=== PATIENT | male | born 1940 | race Caucasian/White ===

== ENCOUNTER 2024-12-26 18:00 | Inpatient (IN) | payer OTHER, SELFPAY ==
[2024-12-26] VITALS (21 sets, daily range): BP systolic 81–121; BP diastolic 53–85; PULSE 2–129; BMI 25.6; BMI 25.1
[2024-12-26] MEDS: OFIRMEV 100 IV (15:08)
--- NOTE | 2024-12-26 15:09 | ED.GENMED ---
History of Present Illness
General
Chief Complaint: Heart Rate Problem
Source: patient and ambulance crew
Exam Limitations: clinical condition
Time Seen by Provider: 12/26/24 14:56
Nursing documentation reviewed up to this point in time: agreed with
History of Present Illness
History of Present Illness:
The patient is an 84-year-old man who arrives extremely short of breath with paramedics. According to paramedics, the patient was tachycardic in the 160s and was extremely short of breath. Therefore, patient was given Versed in the field and
cardioverted twice, with both 100 J and then 200 J. Patient post cardioversion is still tachycardic. Patient arrives and found to be febrile, short of breath and tachycardic. Patient is a vague historian, as he has dementia and is very short of
breath.
Past History
Past History
ED Past Medical History: CAD
ED Past Surgical History: Other
Social History
Tobacco: Former smoker
Alcohol: Other
Drug: Other
Personal: Other
Living: other
Employment: Other
Family History
Family History: Other
Review of Systems
Review of Systems
Allergies reviewed?: Yes
All Other Systems: Not applicable (Limited due to clinical condition)
Constitutional: Reports fatigue
EENT: Reports no symptoms
Respiratory: Reports trouble breathing
Cardiac: Reports no symptoms
ABD/GI: Reports no symptoms
Phy Exam
Physical Exam
Physical Exam:
Physical Exam
General: Patient appears flushed, tachypneic, coughing, nasal congestion, on a nonrebreather of oxygen
Heart: Tachycardic
Lungs: Tachypneic, audible wheezing and rales
Abdomen: Soft
Neuro: Alert, nonfocal
Skin: no rash
Psychiatric: well kept. interactive and cooperative
Extremities: no edema.
Sepsis
Sepsis Screening
Sepsis Assessment: Sepsis
Sepsis Screen
Sepsis Screen: Sepsis
Date: 12/26/24
Time: 16:17
Course
Orders/Labs/Results
Orders:
Orders
12/26/24 14:57
EKG [Electrocardiogram (*1)] Urgent
Reason for Study: Chest Pain
12/26/24 14:58
Portable Chest Xray [CR Chest Portable - 1 View] Urgent
Comment:
Reason For Exam: sepsis
Reason Study Needs to be Portable: Unable to Transport
12/26/24 14:59
EKG- Treatment ONCE
Acetaminophen 1000MG/100Ml [Ofirmev] 1,000 mg in 100 ml .ROUTE .STK-MED
12/26/24 15:03
Acetaminophen 1000MG/100Ml [Ofirmev] 1,000 mg in 100 ml IV ONCE
Acetaminophen IV Indication:: No AR & No Enteral Access
Dexamethasone Sod Phosphate [Decadron] 10 mg IV NOW STA
Bipap [RESP] Urgent
Patient to use own unit?: No
Inspiratory Pressure (cm H2O): 10
Expiratory Pressure (cm H2O): 5
12/26/24 15:04
COVID-19 Antigen Urgent
Source: Nasal Swab
Complete Blood Count/With Diff Urgent
Comprehensive Metabolic Panel Urgent
Lactate Level [Lactic Acid] Urgent
NT-proBNP Urgent
Troponin I Urgent
Blood Culture Q10M
DONAL Source: Blood/Venous
Specimen Description:
Influenza A+B Rapid Molecular Urgent
DONAL Source: Nasal Swab
Specimen Description:
0.9% Sodium Chloride 500 ml [Nss] 500 ml IV BOLUS
Albuterol Sulfate [Ventolin Nebules] 10 mg INH R NOW STA
12/26/24 15:05
Venous Blood Gas Urgent
%Oxygen/Room Air: 5
12/26/24 15:32
Urinalysis Reflex To Culture Urgent
12/27/24 14:58
Blood Culture Q10M
DONAL Source: Blood/Venous
Specimen Description:
Abnormal Lab Results
12/26/24 12/26/24
15:04 15:05
WBC 12.2 H 10^3/uL
(4.8-10.8)
RBC 4.28 L 10^6/uL
(4.70-6.10)
Hgb 12.2 L g/dL
(13.0-18.0)
Hct 36.8 L %
(39.0-52.0)
Abs Immat Gran (auto) 0.1 H 10^3/uL
(0-0.05)
Absolute Neuts (auto) 9.5 H 10^3/uL
(1.4-6.5)
Absolute Monos (auto) 1.4 H 10^3/uL
(0.1-0.6)
Neutrophils % 77.8 H %
(42.2-75.2)
Lymphocytes % 9.4 L %
(20.5-51.1)
Monocytes % 11.3 H %
(1.7-9.3)
VBG pO2 105 H mmHg
(30-50)
BUN 26 H mg/dl
(9-20)
Creatinine 1.5 H mg/dL
(0.7-1.3)
Glucose 198 H mg/dl
(70-99)
Troponin I 0.066 H* ng/ml
SARS-CoV-2 Antigen Positive A
(Negative)
12/26/24 15:04
12/26/24 15:04
Vital Signs
Initial and Last Documented VS:
Initial Vital Signs
Pulse Resp
133 32
12/26/24 14:58 12/26/24 14:58
Last Documented Vital Signs
Temp Pulse Resp BP
1041 F H 114 15 107/62
12/26/24 15:14 12/26/24 16:00 12/26/24 16:00 12/26/24 16:00
MDM/Problems Addressed
Differential Diagnosis Includes:
Pneumonia, CHF, rapid A-fib, acute coronary syndrome, COPD exacerbation
MDM/Problems Addressed:
Patient presents with acute shortness of breath and fever
Chronic conditions affecting care: CAD
Acute Exacerbation and/or Progression of Chronic Illness:
Patient may have acute exacerbation of acute coronary syndrome causing CHF
*Radiology
Radiology exam reviewed: preliminary read by ED provider (Chest x-ray read by me. Possible left sided infiltrate) and radiology read reviewed
*Pulse Oximetry
Oxygen Mode of Delivery: Room air
Patient hypoxic: yes
Comment: Reportedly was 84% on room air by paramedics. Arrives on a nonrebreather of oxygen.
*EKG
Interpreted by ED Provider?: Yes
Interpretation: abnormal
Comparison EKG: no comparison EKG present
Rate: tachycardiac
Rhythm: a-fib (Possible A-fib versus sinus tachycardia)
[place]: normal axis
Interval: normal interval
QRS Pattern: left vent hypertrophy
Ischemia: non-specific ST changes
*Spent Grain Dryer Interpretation
Rate: tachycardiac
Interpretation: abnormal
Rhythm: sinus (Sinus tach versus A-fib)
*Critical Care Note
Total Time (30-74mins, 75-104mins- exclusive of procedures): 54 min
comment:
54 minutes critical care given to patient including frequent reassessments of his heart rate, blood pressure, mental status and respiratory rate. Patient is greatly improved with BiPAP and is breathing more comfortably. Additionally, time spent
checking patient's chest x-ray, reviewing his blood work and speaking to admitting team
Data Reviewed
Source: patient and ambulance crew
Update Note
Update Note:
Given patient's fever is likely due to viral illness, antibiotics will be held for now. If needed, the admitting service can initiate antibiotics.
ED Attending Note
-
Portions of this chart may have been created with voice recognition software.� Occasional wrong word or��sound alike� substitutions may have occurred due to the inherent limitations of voice recognition software.
Discharge Plan
Departure
Patient Disposition: Admit
Date of Disposition: 12/26/24
Time of Disposition: 16:11
Admit to: IMU
Presentation/result/management discussed w/ accepting MD/DO: Hospitalist
Patient with high blood pressure during this ER visit?: No
Condition: Critical
Covid-19: Confirmed COVID-19
Discharge Problem:
A-fib with rapid ventricular rate, CHF (congestive heart failure), Acute hypoxic respiratory failure, COVID
Discharge Date and Time
Print Language: BOTSWANAN
[2024-12-26] MEDS: VENTOLIN NEBULES 10 MG INH (15:12)
[2024-12-26 15:15] LABS: Hematocrit 36.8 % (39.0-52.0); Hemoglobin 12.2 g/dL (13.0-18.0); Mean Corp Hgb Conc. 33.2 g/dL (33.0-37.0); Mean Corpuscular Volume 86.0 fL (80.0-94.0); Nucleated Red Blood Cells % 0 % (-); Platelet Count 191 10^3/uL (130-400); Red Cell Dist. Width 13.7 % (11.5-14.5)
[2024-12-26 15:16] LABS: Venous Blood Gas B.E. 1.0 mmol/L (-4 to +4); Venous Blood Gas O2 Sat % 98.7 %
[2024-12-26 15:29] LABS: ALT (SGPT) 14 U/L (0-50); AST (SGOT) 24 U/L (17-59); Albumin 4.0 g/dl (3.5-5.0); Alkaline Phosphatase 97 U/L (38-126); Blood Urea Nitrogen 26 mg/dl (9-20); Calcium 9.0 mg/dl (8.4-10.2); Carbon Dioxide 26 mmol/L (22-30); Chloride 102 mmol/L (98-107); Glucose 198 mg/dl (70-99); Potassium 4.1 mmol/L (3.5-5.1); Sodium 137 mmol/L (135-145); Total Protein 7.6 g/dl (6.3-8.2); eGFR 45.62
[2024-12-26 15:32] LABS: COVID-19 Antigen Positive (Negative)
[2024-12-26] MEDS: NSS 500 IV (15:38)
[2024-12-26 15:46] LABS: Troponin I 0.066 ng/ml
[2024-12-26] MEDS: DECADRON 10 MG IV (15:50)
--- NOTE | 2024-12-26 16:40 | W.PN.UPDATE ---
Update Note
Progress Note Update
84-year-old male with dementia, HFrEF with LVEF 25%, CAD presented to the hospital via EMS with tachycardia and dyspnea. Noted to have heart rate 160s per minute in the field with significant shortness of breath, was given Versed and cardioverted x
2 with 100 J and then 200 J subsequently. Following cardioversion remained tachycardic. Found to be febrile, history limited by dementia. Upon arrival was hypoxemic requiring BiPAP, febrile, hypotensive but responsive to fluid. Labs with WBC
12.2, neutrophilic predominance, creatinine 1.5, BUN 26, troponin 0.066, BNP 11,700. VBG with pH 7.38, [id number], bicarb 26.6. Viral panel positive for COVID. ECG with sinus tachycardia and PVCs, no obvious acute ischemic change, QTc 500 ms. CXR
with mild interstitial opacification consistent with edema and mild opacification at the left lung base. In the ED was given albuterol nebulizer, 10 mg Decadron, 1 g Tylenol and 500 mL IV fluids. Blood cultures taken in the ED.
Alert and oriented, appears unwell. Bibasilar crackles, L >R, nonlabored on BiPAP. Tachycardic with regular appearing rhythm, no murmurs, normal S1-2, no JVD. Benign abdomen. Trace edema, palpable pulses. Skin warm and dry. No focal deficits
Acute hypoxemic respiratory failure. Likely associated with COVID, decompensated HFrEF. COVID-positive, BNP near 12,000, CXR with edema. Started on steroid in the ED, will continue with IV Decadron 6 mg daily, remdesivir for 5 days. Continue
with as needed bronchodilators Start IV Lasix 20 mg, monitor BMP + I's and O's + weights. Ordered TTE. Wean oxygen for SpO2 goal >90%
Sepsis secondary to pneumonia. Suspect this is predominantly viral though did have high fever via rectal route on arrival, possible opacity of left lung base. Will add on procalcitonin, if elevated will consider course of empiric IV ceftriaxone
and doxycycline. Follow-up blood cultures as above, check sputum culture. Trend CBC and temperature curve
Elevated troponin. Suspect nonischemic injury from hypoxemia and tachycardia though cannot rule out ACS completely. No reported chest pain, ECG without ischemic change. Will hold off on IV heparin drip for now, trend troponin with serial ECG.
Start baby aspirin, consider statin when tolerating p.o. diet. Beta-jose as above. Consider IV heparin if troponin up trends or he develops dynamic ECG changes. Check echo for WMA. Telemetry
Atrial fibrillation with RVR. [id number] 3 or higher, limited history. S/p cardioversion x 2 en route to hospital. Remains tachycardic with heart rate 115 on arrival. Start metoprolol tartrate 25 mg twice daily, as needed Lopressor for HR
sustained >130. Consult cardiology for decision on anticoagulation in the context of advanced dementia. Follow-up echo as above. Monitor telemetry
QTc prolongation. 500 ms on initial ECG. Avoid QTc prolonging agents for now. Start beta-jose as above. Monitor telemetry. Check Mag, replete electrolytes for K >4 and mag >2.
SQ heparin
NPO for now, JAVA DEVELOPMENT MANAGER eval
DNR
[facility]
I will be admitting Selwyn Gilmore to IMU. He is at high risk for worsening morbidity due to acute hypoxemic respiratory failure due to COVID and CHF. He will require intensive monitoring of his respiratory status and readjustment of his diuretic
regimen. I have discussed this case with the ED attending and box stapler. I have reviewed the case with the resident and agree with all documentation unless otherwise specified.
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
--- NOTE | 2024-12-26 17:28 | CM ---
CM reviewed chart, met with pt bedside in ED. He confirms he currently lives at [facility] for 'past 90 days'. Pt states he hates it there and wants to go back to [place]. Currently on Bipap, COVID +
I spoke to pt's Stephanie, cell [phone], she confirms he was transferred to [facility] from [facility] in late October.
Pt told me he ambulates with cane and confirms this.
Limited information sent by [facility]. Pt's told me he has had 'breathing episodes' in the past.
Tentative discharge plan to return to [facility] once medically stable.
[2024-12-26 17:41] LABS: Magnesium 1.7 mg/dl (1.6-2.3)
[2024-12-26 17:49] LABS: Procalcitonin 0.26 ng/ml (0.0-0.25)
--- NOTE | 2024-12-26 18:31 | PHANOTE ---
med rec tech: pt came with paper work from 10/28/24, I called and asked the nurse on duty for a current MAR. the faxed document is almost impossible to read. I called the facility to ask for a verbal list and was told by the hotel houseman that the
nurse had left and there were no other nurses in the facility. leaving everything unconfirmed. [facility] [phone]
--- NOTE | 2024-12-26 18:41 | PTCARENOTE ---
Patient arrived by stretcher from ED. Patient talkative, denies SOB. Tolerating 3L NC, sats 96%. VSS. NSR with PVCs, HRs in the 80s, BP soft. Patient with dry cough. Mouth care provided. 2 old nicotine patches removed on arrival. Patient AAOx2-3 but
very confused and extremely poor historian. Will closely monitor.
[2024-12-26] MEDS: HEPARIN 5000 UNITS SC (20:08)
[2024-12-26] MEDS: LOPRESSOR PO (20:08)
[2024-12-26 21:05] LABS: Troponin I 1.100 ng/ml
--- NOTE | 2024-12-26 22:07 | PTCARENOTE ---
Received patient at change of shift from dayshift RN. Patient aao x3, unable to state date, but able to state year and season. Affect pleasant. Lung sounds diminished throughout, crackles noted to b/l bases. Pox 98% on 3L o2 via n/c. Dry
non-productive cough noted. Mouth care provided. Patient able to correctly teach back use of call cohen. Call cohen within reach, will continue to monitor patient closely.
--- NOTE | 2024-12-26 23:42 | PTCARENOTE ---
Pct notified RN that patients oral and axillary temp <96 degrees. Rectal temp obtained, 95.8. Notified EMERGENCY ROOM RN who ordere maria teresa hugger to keep temp >97.0. Rectal probe placed, blankets applied. Patient temp increased to 97.1 rectally prior to maria teresa
hugger application. Patient with 0 urine output since start of shift. Patient attempted to use urinal sitting at bedside. Unsuccessful. Bladder scanned for 438ml. EMERGENCY ROOM RN notified. Straight cath x1 unsuccessful. Patient states he thinks he can pee if
he stands. RN assisted patient to stand at bedside with RW. Patient urinated 300ml clear yellow urine. UA sent to lab. Patient verbalizes feeling relief. Call cohen within reach, will continue to monitor patient closely.
[2024-12-26 23:48] LABS: Urine Character Clear (Clear)
[2024-12-27] VITALS (11 sets, daily range): BP systolic 102–115; BP diastolic 57–74
[2024-12-27 00:06] LABS: Urine Red Blood Cell 0-2 /HPF (0-2)
[2024-12-27 03:11] LABS: Hematocrit 35.9 % (39.0-52.0); Hemoglobin 11.8 g/dL (13.0-18.0); Mean Corp Hgb Conc. 32.9 g/dL (33.0-37.0); Mean Corpuscular Volume 85.5 fL (80.0-94.0); Nucleated Red Blood Cells % 0 % (-); Platelet Count 173 10^3/uL (130-400); Red Cell Dist. Width 13.6 % (11.5-14.5)
--- NOTE | 2024-12-27 03:24 | PTCARENOTE ---
RN asked patient if he has a hx of afib. Patient states he is not sure but states that he does have a Watchman.
Patient rhythm appears to be in NSR with PVCs and PACs, monitor reading afib. EKG ordered to confirm current rhythm. Patient remains in NSR, left BBB.
Labs obtained, will continue to monitor patient closely.
[2024-12-27 03:34] LABS: ALT (SGPT) 16 U/L (0-50); AST (SGOT) 30 U/L (17-59); Albumin 3.9 g/dl (3.5-5.0); Alkaline Phosphatase 72 U/L (38-126); Blood Urea Nitrogen 27 mg/dl (9-20); Calcium 9.3 mg/dl (8.4-10.2); Carbon Dioxide 23 mmol/L (22-30); Chloride 105 mmol/L (98-107); Estimated Creatinine Clearance 45 ml/min; Glucose 198 mg/dl (70-99); Potassium 4.5 mmol/L (3.5-5.1); Sodium 138 mmol/L (135-145); Total Protein 7.3 g/dl (6.3-8.2); eGFR 54.17
[2024-12-27 03:51] LABS: Troponin I 1.260 ng/ml
--- NOTE | 2024-12-27 07:10 | CON.CAR ---
Addendum entered and electronically signed by Kayode Mccartney MD 12/27/24 09:43:
84-year-old man residing in [facility], history of paroxysmal atrial fibrillation, likely with Watchman, not anticoagulated, admitted with white QRS tachycardia rate 30s-160s s with subsequent spontaneous conversion to sinus rhythm
after failed cardioversion. proBNP 12,000, COVID-positive, troponin 1.26
PMH: CAD, HFrEF by report, hypertension, CVA, Watchman, dementia
Outpatient meds: Reviewed
Current meds: Dexamethasone 6 mg IV daily, metoprolol tartrate 25 mg twice daily, subcu heparin 5000 every 12, remdesivir
Rest of history as below per Simran Sandhu.
112/74, pulse 93, respiratory rate 15, afebrile, weight is 81.6 kg, pleasant, consistently saying that he was kidnapped to [facility] and that has boyfriend, head neck exam unremarkable, lungs are clear, no distress, regular rate and rhythm,
very soft systolic murmur JVD okay no edema, abdomen benign
Chest x-ray LINQ monitor in place, vascular congestion?
EKG: Probable atrial flutter with 2-1 conduction and underlying left bundle branch block
Repeat ECG: Sinus rhythm with PACs and left bundle branch block
Impression:
COVID
Acute heart failure, with history of HFrEF, reported EF 25%
Known paroxysmal atrial fibrillation
Paroxysmal atrial flutter
History of CVA 3 years ago
Left bundle branch block, presumably longstanding
Dementia
Hypertension
Hypercholesterolemia, on Repatha
History of tobacco use
History of Watchman
Positive troponin, likely non-ACS myocardial injury from COVID and tachycardia
LINQ monitor
Plan:
He presents with known paroxysmal atrial fibrillation, Watchman by report, no anticoagulation, and admitted with COVID pneumonia with atrial flutter, 2-1 conduction and spontaneous conversion to sinus rhythm.
At present he appears comfortable, the likely had acute heart failure unknown EF related to atrial arrhythmia in the setting of COVID.
Will check echo. Based upon this we can determine optimal GDMT.
No need for anticoagulation given the presence of Watchman.
Will need to review old records to better understand underlying coronary disease etc.
Management strategy for troponin will be conservative in light of his comorbidities.
Original Note:
Consultation
Consultation Request
Date/Time Consultation Requested: 12/26/2024
Date/Time Consultation Performed: 12/27/2024, 0715
Requesting Provider: Dr Astudillo
Performing Provider: RADHA Ann for Dr Mccartney
Reason for Consultation: Acute on chronic heart failure reduced EF exacerbation
Medical History
-
Chief Complaint: tachycardia and SOB
History of Present Illness:
84-year-old male with past medical history of heart failure reduced EF, CAD, hypertension, afib, CVA, Watchman device, dementia presents from [facility] with shortness of breath and tachycardia. EMS found patient to be tachycardic with
heart rate in the 160s and extremely short of breath and he was cardioverted twice in the field. Upon arrival in the ED he was febrile, tachypneic. Initially required BiPAP. He was hypotensive and responsive to fluids.
Viral panel positive for COVID. proBNP 12,000.
Troponin 0.066--> 1.1--> 1.26
BUN/creatinine 26/1.5, NA 137, K4.1, WBC 12.2, hemoglobin 12.2.
Chest x-ray with mild interstitial opacification consistent with edema and mild opacification at left lung base. Procalcitonin 0.26.
Initial EKG: probable Aflutter with left bundle branch block, 132 bpm
Repeat EKG 12/27/2024 310: Normal sinus rhythm left bundle branch block 86 bpm , QTc 555msec
Patient reports he previously lived in [place] and had Watchman in [place].
He was treated with albuterol, Decadron, Tylenol, IV fluids, IV Lasix. Remdesivir started for 5 days.
He denies chest pain, palpitations, lightheadedness, edema
+ cough
SOB improved since admission.
Was on Bipap initially but now on O2 3L NC
Past medical history:
Dementia
Heart failure reduced EF, EF 25% per patient's
Hypertension
CVA ~3yrs ago per pt
Watchman
afib
Past Medical History
Past Medical History: Other (as above)
Past Surgical History: Other (watchman)
Social History
Tobacco: Non-Smoker
Family History
Family History: Reviewed & Not Pertinent
Allergies / Home Medications
Allergy/AdvReac Type Severity Reaction Status Date / Time
bee venom protein (honey bee) Allergy Unknown Unknown Verified 12/26/24 15:06
hydrochlorothiazide Allergy Unknown Unknown Verified 12/26/24 15:38
naproxen Allergy Unknown Unknown Verified 12/26/24 15:38
�Medication �Instructions �Recorded �Confirmed �Type
acetaminophen 500 mg tablet 500 mg PO Q6HPRN PRN mild 12/26/24 History
pain/fever
amlodipine 10 mg tablet 10 mg PO DAILY 12/26/24 History
aspirin 81 mg tablet,delayed 81 mg PO DAILY 12/26/24 History
release
cholecalciferol (vitamin D3) 50 50 mcg PO DAILY 12/26/24 History
mcg (2,000 unit) tablet
cyclobenzaprine 5 mg tablet 5 mg PO TIDPRN PRN spasms/sciatica 12/26/24 History
evolocumab 140 mg/mL subcutaneous 140 mg SC Q2W 12/26/24 History
pen injector (Repatha [employer])
furosemide 40 mg tablet 40 mg PO DAILY 12/26/24 History
metoprolol succinate 25 mg 12.5 mg PO DAILY 12/26/24 History
tablet,extended release 24 hr
nicotine 14 mg/24 hr daily 1 patch topical DAILY 12/26/24 History
transdermal patch
quetiapine 25 mg tablet 25 mg PO BID 12/26/24 History
tamsulosin 0.4 mg capsule 0.4 mg PO HS 12/26/24 History
therapeutic multivitamin 1 tab PO DAILY 12/26/24 History
valsartan 80 mg tablet 80 mg PO DAILY 12/26/24 History
Review of Systems
-
Unable to obtain full review of systems at this time due to: Dementia
History Source: Patient
Physical Exam
Vital Signs
Temp Pulse Resp BP Pulse Ox
97.9 F 81 15 105/60 97
12/27/24 06:00 12/27/24 06:00 12/27/24 06:00 12/27/24 06:00 12/27/24 06:00
GEN: No distress, awake, Ox3
HEENT: supple, anicteric, mmm
LUNGS: CTA, no wheezes/rales
CV: Tachy, reg, S1/S2, 2/6 syst apex
ABD: soft, BS+, NT/ND
EXT: No edema
NEURO: Gross non-focal
SKIN: No rash
Lab Results
12/27/24 02:46
12/27/24 02:46
Troponin I 1.260 ng/ml H* 12/27/24 02:46
Gmj-C-Xvpkfbkrxxt Pept 87904 pg/ml 12/26/24 15:04
Impression / Plan
-
PCP: Lucas Yost
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
Impression
Acute hypoxic respiratory failure
Sepsis secondary pneumonia
COVID
Elevated troponin
A-fib with RVR
QT prolongation
LBBB
History of heart failure reduced EF
CAD-exact history unknown
Watchman
Previous CV testing:
unknown at this time
Plan:
84-year-old male with heart failure reduced EF, CVA, A-fib, watchman, CVA, CAD, presents with tachycardia and shortness of breath, found to have COVID pneumonia, acute heart failure, sepsis secondary to pneumonia, elevated troponin.
1.Acute heart failure reduced EF
-proBNP 11,700 and initially volume overloaded on exam
-Treated with IV Lasix, agree and would continue. Renal function stable. Patient on Lasix 40 mg daily in home setting.
-Continue home doses of ARB and Toprol-per records from [facility], patient is on valsartan 80 mg daily and Toprol 12.5 mg daily
-Daily weights and I/O's
- Patient weight is down 4 pounds since admission
- Check echo
2. Atrial fibrillation
-Reported history of atrial fibrillation and status post Watchman device per patient approximately 3 years ago in [place]
-Rhythm on presentation appears to be atrial flutter with left bundle branch block. Patient now in normal sinus rhythm with left bundle branch block
-Telemetry personally reviewed NSR with PACs,80-90s
3. History of CVA.
-Continue aspirin and aggressive lipid-lowering. He was on aspirin and Repatha in outpatient setting.
4. Elevated troponin
- Trend to peak
- Patient denies chest pain
-Likely nonischemic myocardial injury in setting of hypoxemia and tachycardia
- Checking echo
- EKG with left bundle branch block
5. COVID
-Treatment per primary team
Awaiting previous records to fully understand past medical history
Data Reviewed
-
EKG: Tracing Personally Visualized and interpreted
Labs: Labs Reviewed by me
[2024-12-27] MEDS: DECADRON 6 MG IV (08:31)
[2024-12-27] MEDS: HEPARIN 5000 UNITS SC ×2 (08:31→20:33)
[2024-12-27] MEDS: DESENEX/MITRAZOL/ZEASORB 1 APPLIC TOPICAL ×2 (08:34→20:32)
[2024-12-27] MEDS: LOPRESSOR 25 MG PO ×2 (08:35→20:33)
[2024-12-27 09:25] LABS: INR 1.19; PT 15.4 Sec (11.4-14.6)
[2024-12-27 09:26] LABS: APTT 33.8 Sec (23.4-35.0)
--- NOTE | 2024-12-27 09:33 | W.PN.HOSP.TC ---
Addendum entered and electronically signed by Jerry Bowden MD 12/27/24 23:46:
Attending Addendum-
I saw and evaluated the patient. I reviewed the resident�s note and agree with findings and plan as documented in the resident�s note. Sub: Denies SOB WATSON feels weak. 'im pretty good considering' Denies fevers chills. Full 12 point ROS reviewed and
negative except as documented Exam: Vitals reviewed in chart GEN-NAD heart RRR lungs fine crackles at bases abd soft LE no edema Neuro AAO x 2
Plan:
# Acute hypoxic respiratory failure
- required bipap then NC now on RA and sating well
- duonebs prn
- cont IV Decadron
# Acute on chronic HFrEF exacerbation
# Aflutter with h/p parox a fib -> sinus tachy
- per , EF of 25%
- repeat echo
- furosemide 20mg IV once given
- monitor I/Os
- cont metoprolol tartrate BID
- cardiology input appreciated
- has watchman no AC
# Covid pneumonia
- rapid improvement
- no remdesivir or paxlovid needed at this time
- cont IV Decadron
# Non-ischemic myocardial injury
- likely demand ischemia i/s/o HFrEF exacerbation, tachycardia, and covid infection
- trend troponins peaked 1.26
- check Echo
# Elevated creatinine
- Cr 1.5, unknown baseline
- trend BMP
# HTN - per , chart review per external [facility] face sheet lists HCTZ, can hold HCTZ for now.
# Dementia - unclear type, likely Alzheimer's
Request additional records from family and fe court
Code status: DNR
DVTppx: heparin subq
ACP
Patient consented to discuss, was alone, time spent explanation of advance directives, changes in health status, patient�s health care wishes if the patient becomes unable to make health decisions, goals of care, code status, and prognosis 'i
definitely dont want that tube down my throat'- 16 minutes
Time spent coordinating care, review of plan of care with resident, personally reviewed previous records in EMR, med rec, labs, radiology, d/w nursing, total time documented is exclusive of any additional time listed that was spent in advance care
planning discussion -�51 minutes
Original Note:
Today's Communication/Plan
-
- Continue dexamethasone until discharge
- Pending cards consult & echo
- Consider downgrade from IMU
Assessment / Plan
Assessment / Plan
Adolph Gilmore is an 84yo M with a pmh notable for afib (s/p watchman), HFrEF (25%) & HTN who p/w dyspnea & tachypnea, found to be COVID positive and septic with suspected CHrEF exacerbation and acute hypoxic respiratory failure. Now improving s/p
oxygen, lasix, dexamethasone.
#Acute hypoxic respiratory failure
#Covid pneumonia
Improved. Pulse 93. Mild tachypnea RR 22. Afebrile (98.4). Now with 97% O2 sat on 1L nasal cannula & no dyspnea at rest. WBC downtrended to wnl (6.3 from 12.2), neutrophils % still elevated 84.5%. Procal 0.26 (normal 0.25)
- Continue dexamethasone 6mg IV daily until discharge (or 10 days max, whichever sooner)
- S/p 1 dose remdesivir
- Duonebs prn
- Wean off NC as appropriate if >95% on RA
- Had been planning to consider empiric abx trt if procal elevated; given WBC & clinical picture today & very mild elevation, likely not
- Can downgrade from IMU to tele floor
#Acute on chronic HFrEF exacerbation
Likely triggered by COVID pneumonia. Baseline 25% EF, per . BUN 27. Mg wnl 1.7.
- S/p 1 dose lasix (20mg IV, 12/26)
- Continue metoprolol tartrate 25mg BID
- Cards consulted, appreciate recs
- Echo ordered, pending results
- If tachycardic HR>130, PRN IV lopressor 5mg q6h
# Non-ischemic myocardial injury
Elevated troponin to 0.066 on 12/26, increased to 1.1, then 1.260 on 12/27. EKG 12/26 without evidence of ischemia. EKG 12/27 with normal sinus rhythm, no signs ischemia, PVCs & LBBB. Elevated trop likely 2/2 demand ischemia in s/o HFrEF exacerbation
2/2 COVID PNA.
- Continue to trend troponins
#Elevated glucose
198 on admission, same today.
- Start sliding scale insulin
#Prolonged QTc
#Paroxysmal atrial flutter
QT interval 464ms & 485ms on 12/27 EKGs. Potentially 2/2 home quetiapine. Per cards, likely longstanding LBBB - likely etiology of QT prolongation.
- To complete med rec with family/care center
- Appreciate cards recs
#Elevated creatinine, resolving
Cr 1.5 on admission, unknown baseline. Now trended down to 1.3 wnl.
- Continue to trend BMP
#Chronic issues:
#HTN - per , chart review per external [facility] face sheet lists HCTZ, can hold HCTZ for now.
#Afib - watchman
#Dementia
#Global
Diet: Regular & thin liquid diet, per [facility]
Code status: DNR per record
DVTppx: heparin subq
Disposition: lives at [facility], likely dispo there pending PT/OT recs (to consult once clinically appropriate)
Anticipated Discharge: > 48 hours
Subjective/Interval History
-
Date of Service: December 27, 2024
Pt awake & talkative this am, reports feeling well. Slept overnight more than expected. Denies any SOB today. Occasional dry cough (had this morning right after waking up, none overnight, none while speaking this am). No pain, no fever/chills. Pt
temperature slightly low (97.4) overnight, received bearhugger warming blanket. Now comfortable.
Objective Data
-
Labs:
Laboratory Results
12/27/24 12/27/24 12/27/24
02:46 08:46 09:05
WBC 6.3
Hgb 11.8 L
Hct 35.9 L
Plt Count 173
PT Cancelled 15.4 H
INR Cancelled 1.19
APTT 33.8
Sodium 138
Potassium 4.5
Chloride 105
Carbon Dioxide 23
BUN 27 H
Creatinine 1.3
Glucose 198 H
Calcium 9.3
Total Bilirubin 0.8
AST 30
ALT 16
Alkaline Phosphatase 72
12/27/24
09:06
WBC
Hgb
Hct
Plt Count
PT Cancelled
INR Cancelled
APTT
Sodium
Potassium
Chloride
Carbon Dioxide
BUN
Creatinine
Glucose
Calcium
Total Bilirubin
AST
ALT
Alkaline Phosphatase
Vital Signs:
Vital Signs
Temp Pulse Resp BP Pulse Ox
98.4 F 93 22 112/74 97
12/27/24 08:18 12/27/24 09:15 12/27/24 09:15 12/27/24 08:35 12/27/24 09:15
I&O
12/26/24 12/27/24 12/28/24
06:59 06:59 06:59
Intake Total 120 / 120
Output Total 500 / 500
Balance -380 / -380
Review of Systems
-
History Source: Patient
Constitutional: Reports Fever (denies), Sleep Disturbance (denies) and Chills (denies)
Respiratory: Reports Cough (dry cough in am after waking up) and Trouble Breathing (denies dyspnea)
Cardiac: Reports Chest Pain (denies)
Physical Exam
-
General: Well Developed, Well Nourished and Conversant
HEENT: Normocephalic, Atraumatic, Anicteric and Oxygen (nasal cannula)
Respiratory: Clear to Auscultation (no crackles appreciated at lung bases )
Cardiac: Regular Rhythm (RRR)
GI: Soft and Nontender
Musculoskeletal: No Edema
Neuro: Awake and Alert
Psych: Calm
[2024-12-27 09:51] LABS: Troponin I 0.993 ng/ml
[2024-12-27] MEDS: VEKLURY 250 MG IV (10:08)
--- NOTE | 2024-12-27 11:39 | PTCARENOTE ---
Addendum entered by Jaydon Liz RN 12/27/24 19:14:
Updated patients over the phone. Patient also called and spoke with his for comfort.
Original Note:
Patient AAOx2, pleasant, confused and talkative. VSS. Weaned to RA, sats 96%. Occasional dry cough. Patient with no complaints. Patient OOB in chair with chair alarm on. Will closely monitor.
--- NOTE | 2024-12-27 15:08 | CM ---
CM reviewed chart
Pt from [facility]
TT/resident requesting therapy order
PT eval pending
Pt COVID+. on bipap with O2 needs
VM from spouse requesting medical update- TT sent to attending
Discharge Disposition- anticipate return to [facility] vs watch for higher level needs
--- NOTE | 2024-12-27 17:10 | W.PN.UPDATE ---
Update Note
Progress Note Update
Spoke on the phone with , Stephanie. Provided updates on planned echo, progression off oxygen, treatment course, & planned downgrade from IMU. very helpful, confirmed that his dx on entry to [facility] was 'mild vascular dementia with
psychotic disturbance.' Confirmed that he does not have DM. She does not have full medication list - contact information for MD (Dr. Rollins) for [facility] is [phone].
Called [facility] & left voicemail requesting callback with med rec.
[2024-12-27 18:10] LABS: Glucose - Point of Care 155 mg/dl (70-99)
[2024-12-27] MEDS: NOVOLOG FLEXPEN-LOW RESISTANCE 1 UNITS SC (18:32)
[2024-12-28 03:12] VITALS: BP 104/72
[2024-12-28 06:00] VITALS: BMI 24.9
[2024-12-28 06:03] VITALS: BMI 25.1
[2024-12-28 07:00] VITALS: BP 111/72
--- NOTE | 2024-12-28 07:29 | PTCARENOTE ---
Pt was not tolerating TELE monitor.... kept ripping it off himself every time PCT and RN would reattach to pt. No TELE on pt at this time.
[2024-12-28 07:34] LABS: Blood Urea Nitrogen 45 mg/dl (9-20); Calcium 9.4 mg/dl (8.4-10.2); Carbon Dioxide 22 mmol/L (22-30); Chloride 107 mmol/L (98-107); Estimated Creatinine Clearance 39 ml/min; Glucose 118 mg/dl (70-99); Potassium 4.7 mmol/L (3.5-5.1); Sodium 138 mmol/L (135-145); eGFR 45.62
[2024-12-28 07:38] LABS: Troponin I 0.694 ng/ml
[2024-12-28 08:00] LABS: Hematocrit 36.5 % (39.0-52.0); Hemoglobin 12.2 g/dL (13.0-18.0); Mean Corp Hgb Conc. 33.4 g/dL (33.0-37.0); Mean Corpuscular Volume 85.5 fL (80.0-94.0); Platelet Count 235 10^3/uL (130-400); Red Cell Dist. Width 13.6 % (11.5-14.5)
[2024-12-28 08:42] LABS: Glucose - Point of Care 108 mg/dl (70-99)
[2024-12-28] MEDS: NOVOLOG FLEXPEN-LOW RESISTANCE SC ×3 (08:57→16:58)
[2024-12-28 08:59] VITALS: BP 121/72; PULSE 96; O2SAT 96
[2024-12-28] MEDS: HEPARIN 5000 UNITS SC ×2 (09:03→23:56)
[2024-12-28] MEDS: DECADRON 6 MG IV (09:05)
[2024-12-28] MEDS: LOPRESSOR 25 MG PO ×2 (09:06→23:58)
[2024-12-28] MEDS: DESENEX/MITRAZOL/ZEASORB 1 APPLIC TOPICAL ×2 (09:07→23:56)
--- NOTE | 2024-12-28 09:12 | W.PN.HOSP.TC ---
Addendum entered and electronically signed by Jerry Bowden MD 12/28/24 22:30:
Attending Addendum-
I saw and evaluated the patient. I reviewed the resident�s note and agree with findings and plan as documented in the resident�s note. Sub: Asking for her mother. Confused but able to be redirected. Denies SOB WATSON feels weak. Denies fevers chills.
Full 12 point ROS reviewed and negative except as documented Exam: Vitals reviewed in chart GEN-NAD heart RRR lungs fine crackles at bases abd soft LE no edema Neuro AAO x 2
Plan:
# Acute hypoxic respiratory failure
- required bipap then NC now on RA and sating well
- duonebs prn
- cont PO Decadron
# Acute on chronic HFrEF exacerbation
# Aflutter with h/p parox a fib -> sinus tachy
- per , EF of 25%
- repeat echo 12/28-Normal LV size and severely reduced function. Severe Global hypokinesis. Ejection fraction is 10-15% by visual assessment.
-Thickened and calcified aortic valve with restricted leaflet motion. Peak and mean gradients across the aortic valve are 18/8 mmHg respectively. Moderate aortic stenosis. Mild to moderate aortic valve regurgitation.
Aortic valve area by continuity equation 0.8 to 0.9 cm², pressure half-time 413 ms.
-Mild to moderate mitral valve regurgitation.
- furosemide 20mg IV once given cont home lasix dose
- monitor I/Os
- cont metoprolol tartrate BID
- cardiology input appreciated
- has watchman no AC
- on valsartan as OP- held
- T/C GDMT
# Leukocytosis- from steroids check CBC in am
# Covid pneumonia
- rapid improvement
- no remdesivir or paxlovid needed at this time
- cont IV/PO Decadron
# Non-ischemic myocardial injury
- likely demand ischemia i/s/o HFrEF exacerbation, tachycardia, and covid infection
- trend troponins peaked 1.26
- check Echo - EF 10-15%
- unclear benefit of SGLTi at this age and comorbidities d/w cards
# Elevated creatinine
- Cr 1.5, unknown baseline
- trend BMP
# HTN - hold valsartan and amlodipine
# Dementia - unclear type, likely Alzheimer's
Code status: DNR
DVTppx: heparin subq
Dispo DC to AC in am
Time spent coordinating care, review of plan of care with resident, personally reviewed records in EMR, med rec, consults, notes, labs, radiology, d/w nursing � 51 mins
Original Note:
Today's Communication/Plan
-
#Acute hypoxic respiratory failure
#Covid pneumonia
- Continue dexamethasone 6mg daily until discharge (or 10 days max, whichever sooner; day 3, started 12/26)
- Duonebs prn
#Acute on chronic HFrEF exacerbation
- S/p 1 dose lasix (20mg IV, 12/26)
- Continue metoprolol tartrate 25mg BID
- Cards consulted, appreciate recs
- Echo ordered, pending results
Assessment / Plan
Assessment / Plan
Adolph Gilmore is an 84yo M with a pmh notable for afib (s/p watchman), HFrEF (25%) & HTN who p/w dyspnea & tachypnea, found to be COVID positive and septic with suspected CHrEF exacerbation and acute hypoxic respiratory failure, now improved s/p
trt with oxygen, lasix, dexamethasone.
#Acute hypoxic respiratory failure
#Covid pneumonia
Improved, pt no longer requiring O2 and without SOB/cough. RR 18, pulse 76, O2 sat 95% on RA. Afebrile (98.2). WBC slightly elevated (19.3 from 6.3 yesterday), likely 2/2 steroid course. S/p 1 dose remdesivir (12/27), d/c due to clinical improvement
without. Has not required duonebs. Downgraded from IMU.
- Continue dexamethasone 6mg daily until discharge (or 10 days max, whichever sooner; day 3, started 12/26)
- Duonebs prn
#Acute on chronic HFrEF exacerbation
Likely triggered by COVID pneumonia. Baseline 25% EF, per . BUN 27. Mg wnl 1.7.
- S/p 1 dose lasix (20mg IV, 12/26)
- Continue metoprolol tartrate 25mg BID
- Cards consulted, appreciate recs
- Echo ordered, pending results
#Leukocytosis
WBC increased to 19.3 today from 6.2 yesterday. Potentially 2/2 to steroid course given otherwise well clinical picture.
- Continue to monitor, ensure no further increase
#Agitation, AMS
Underlying vascular dementia with psychotic features. Likely exacerbated overnight with setting change (from IMU to floors) & with agitation by decadron course, as well. , improved in am. Likely to resolve with discharge & cessation of
steroids/return to familiar environment.
- Continue to monitor
#Paroxysmal atrial flutter, now resolved
#Prolonged QTc
Pt w known a fib s/p watchman. Admitted with atrial flutter and LBBB, spontaneous conversion to sinus rhythm. QT interval 464ms & 485ms on 12/27 EKGs, likely 2/2 longstanding LBBB.
- To complete med rec with [facility]
- Continue on tele, appreciate cards recs; can likely d/c
#Elevated glucose
Trending down s/p sliding scale insulin; 198 yesterday, 118 today. No DM at baseline. Likely 2/2 steroid course.
- Continue sliding scale insulin
#Non-ischemic myocardial injury
Troponins peaked at 1.260 (12/27), downtrending since, 0.694 today. EKG 12/26 without evidence of ischemia. EKG 12/27 with normal sinus rhythm, no signs ischemia, PVCs & LBBB. Elevated trop likely 2/2 demand ischemia in s/o HFrEF exacerbation 2/2 COVID
PNA.
- Continue to trend troponins
#Elevated creatinine, resolving
Cr 1.5 on admission, unknown baseline. Trended down to 1.3, now 1.5.
- Continue to trend BMP
#Chronic issues:
#HTN - per , chart review per external [facility] face sheet lists HCTZ, can hold HCTZ for now.
#Afib - watchman
#Dementia
#Global
Diet: Regular & thin liquid diet, per [facility]
Code status: DNR per record
DVTppx: heparin subq
Disposition: lives at [facility], likely dispo there tomorrow; seen by PT/OT today, cleared to return to [facility]
Anticipated Discharge: 24 - 48 hours
Subjective/Interval History
-
Date of Service: December 28, 2024
RN reports that patient was agitated & confused overnight, pulling off tele monitor and pulling out IV lines. This am, pt more calm, no longer agitated, although a bit confused in conversation. Denies any pain, n/v, f/c. Denies any trouble
breathing/SOB. States that his should be coming this afternoon. Eager to leave hospital.
Objective Data
-
Labs:
Laboratory Results
12/28/24
06:47
WBC 19.3 H
Hgb 12.2 L
Hct 36.5 L
Plt Count 235 D
Sodium 138
Potassium 4.7
Chloride 107
Carbon Dioxide 22
BUN 45 H
Creatinine 1.5 H
Glucose 118 H
Calcium 9.4
Vital Signs:
Vital Signs
Temp Pulse Resp BP Pulse Ox
98.2 F 76 18 111/72 95
12/28/24 07:00 12/28/24 07:00 12/28/24 07:00 12/28/24 07:00 12/28/24 07:00
I&O
12/27/24 12/28/24 12/29/24
06:59 06:59 06:59
Intake Total 120 / 120 480 / 480
Output Total 500 / 500 600 / 600
Balance -380 / -380 -120 / -120
Review of Systems
-
Unable to obtain full review of systems at this time due to: Dementia
History Source: Patient
Constitutional: Reports Fever (denies)
Respiratory: Reports Trouble Breathing (denies)
Physical Exam
-
General: Well Developed, Well Nourished and No Apparent Distress
HEENT: Normocephalic, Atraumatic and Anicteric
Respiratory: Clear to Auscultation
Cardiac: Regular Rhythm (RRR)
GI: Soft, Nontender and Nondistended
Musculoskeletal: No Edema (no DRU bilaterally)
Neuro: Awake and Alert
Psych: Confused
[2024-12-28 10:33] LABS: Glycohemoglobin (HgbA1c) 6.0 % (4.0-5.6)
[2024-12-28 11:00] VITALS: BP 121/71
[2024-12-28 12:06] LABS: Glucose - Point of Care 148 mg/dl (70-99)
[2024-12-28 12:49] VITALS: BMI 25.1
--- NOTE | 2024-12-28 14:46 | CM ---
Reviewed the chart notes. CM left voice message for nurse at [facility]. Per attending, planning for discharge tomorrow. Per PT, patient at baseline. CM continues to be available to patient/family and is monitoring medical plan for needs at
discharge.
Plan: Discharge hopefully back to [facility]. Awaiting call back from nurse to review PT notes.
[2024-12-28 15:00] VITALS: BP 108/63
[2024-12-28 16:50] LABS: Glucose - Point of Care 146 mg/dl (70-99)
--- NOTE | 2024-12-28 17:31 | W.PN.CARDCBS ---
Addendum entered and electronically signed by Kayode Mccartney MD 12/28/24 17:52:
84-year-old man [place] in [facility] [place] history of paroxysmal atrial fibrillation, likely with Watchman, not anticoagulated, admitted with white QRS tachycardia rate 30s-160s s with subsequent spontaneous conversion to sinus rhythm
after failed cardioversion. proBNP 12,000, COVID-positive, troponin 1.26
PMH: CAD, HFrEF by report, hypertension, CVA, Watchman, dementiaMedications: Dexamethasone 6 mg IV daily, metoprolol tartrate 25 mg twice daily, subcu heparin, furosemide 40 mg daily. As outpatient patient was on amlodipine 10 mg daily and
valsartan 80 mg a day, also on Repatha
108/63, pulse 78, respiratory rate 18, head neck exam unremarkable lungs are clear, regular rate and rhythm without obvious murmurs or gallops, abdomen benign, extremities without substantial edema
Hemoglobin 12.2, white count 19.3, BUN/creatinine are 45 and 1.5, troponin is 0.694, peak was 1.26
Echocardiogram: Pending, preliminary is EF 20%, previously 25%
Impression:
Atrial flutter with rapid ventricular response, with spontaneous conversion to sinus rhythm
CAD
Elevated troponin
COVID
Acute on chronic HFrEF, now compensated
Left bundle branch block
Watchman
Plan:
He has had no recurrences of atrial flutter, continue metoprolol. Watchman in place, continue aspirin.
Regarding troponin, likely nonischemic myocardial injury related to atrial flutter with rapid ventricular response, would not pursue further other than restarting aspirin, continuing Repatha and continuing beta-jose
No evidence of heart failure at present despite markedly reduced LV function. Restart valsartan at lower dose when renal function and blood pressure permit
Agree with restart of furosemide 40 mg a day
Original Note:
Today's Communication / Plan
-
Restart outpatient dose of Lasix in AM
Impression / Plan
-
PCP: Lucas Yost
No primary clearing hand
Impression
Acute hypoxic respiratory failure
Sepsis secondary pneumonia
COVID
Elevated troponin
Acute on chronic HFrEF
A-fib with RVR
QT prolongation
LBBB
CAD-exact history unknown
Watchman
Echo 12/28/2024: Final report pending, but preliminarily EF 15 to 20%
Plan:
-84-year-old male with heart failure reduced EF, CVA, A-fib, watchman, CVA, CAD, presents with tachycardia and shortness of breath, found to have COVID pneumonia, acute heart failure, sepsis secondary to pneumonia, elevated troponin.
-Echo report pending, but EF 15 to 20% on 12/28/2024. EF reportedly reduced at 20 to 25% in the past. Patient following with an outside clearing hand and no previous testing results at [facility]
-Weight is down 1 pound overnight following a single dose of Lasix 20 mg IV on 12/27/2024. Patient was taking Lasix 40 mg PO daily prior to admission. Lasix 40 mg PO daily ordered by me to start 12/29/2024
-Outpatient dose of Toprol-XL 12.5 mg daily was changed to Lopressor 25 mg twice daily due to difficulty swallowing and the need to crush pills
-Outpatient dose of valsartan 80 mg daily is on hold due to possible CLARENCE
-Patient with known A-fib, but was admitted in so presumably this is paroxysmal. Patient is not chronically on OAC due to previous Watchman procedure
-Patient has history of CVA and is on aspirin
-Troponin peaked at 1.26 and will be managed as a nonischemic myocardial injury troponin elevation in the setting of hypoxia
Progress Note - Soap Mixer
Subjective
Date of Service: December 28, 2024
Tired
Objective
Labs:
12/28/24 06:47
12/28/24 06:47
Labs
Hgb 12.2 g/dL (13.0-18.0) L 12/28/24 06:47
Hct 36.5 % (39.0-52.0) L 12/28/24 06:47
Plt Count 235 10^3/uL (130-400) D 12/28/24 06:47
PT Cancelled 12/27/24 09:06
INR Cancelled 12/27/24 09:06
APTT 33.8 Sec (23.4-35.0) 12/27/24 09:05
Sodium 138 mmol/L (135-145) 12/28/24 06:47
Potassium 4.7 mmol/L (3.5-5.1) 12/28/24 06:47
BUN 45 mg/dl (9-20) H 12/28/24 06:47
Creatinine 1.5 mg/dL (0.7-1.3) H 12/28/24 06:47
Glucose 118 mg/dl (70-99) H 12/28/24 06:47
Troponins
12/26/24 12/26/24 12/27/24
15:04 20:22 00:05
Troponin I 0.066 H* 1.100 H* D Cancelled
12/27/24 12/27/24 12/28/24
02:46 09:01 06:47
Troponin I 1.260 H* 0.993 H* 0.694 H*
Vital Signs and I&O:
Vital Signs
Temp Pulse Resp BP Pulse Ox
97.7 F 78 18 108/63 94
12/28/24 15:00 12/28/24 15:00 12/28/24 15:00 12/28/24 15:00 12/28/24 15:00
Vital Signs
Temp Pulse Resp BP Pulse Ox
97.7 F 78 18 108/63 94
12/28/24 15:00 12/28/24 15:00 12/28/24 15:00 12/28/24 15:00 12/28/24 15:00
Intake & Output
12/26/24 12/27/24 12/28/24 12/29/24
06:59 06:59 06:59 06:59
Intake Total 120 / 120 480 / 480 520 / 520
Output Total 500 / 500 600 / 600
Balance -380 / -380 -120 / -120 520 / 520
Physical Exam
Physical Exam
GEN: NAD
LUNGS: RA
CV: SR on tele
[2024-12-28 21:00] LABS: Glucose - Point of Care 180 mg/dl (70-99)
[2024-12-28 23:40] VITALS: BP 99/45
[2024-12-29 05:19] VITALS: BMI 24.6
[2024-12-29 06:35] LABS: Hematocrit 34.9 % (39.0-52.0); Hemoglobin 11.5 g/dL (13.0-18.0); Mean Corp Hgb Conc. 33.0 g/dL (33.0-37.0); Mean Corpuscular Volume 86.0 fL (80.0-94.0); Nucleated Red Blood Cells % 0 % (-); Platelet Count 222 10^3/uL (130-400); Red Cell Dist. Width 13.7 % (11.5-14.5)
--- NOTE | 2024-12-29 06:48 | W.PN.HOSP.TC ---
Addendum entered and electronically signed by Jerry Bowden MD 12/29/24 23:10:
Attending Addendum-
I saw and evaluated the patient. I reviewed the resident�s note and agree with findings and plan as documented in the resident�s note. Sub: less confused today. requesting to 'go home' Denies SOB WATSON. Denies fevers chills. Full 12 point ROS reviewed
and negative except as documented limited by dementia Exam: Vitals reviewed in chart GEN-NAD heart RRR lungs fine crackles at bases abd soft LE no edema Neuro AAO x 1-2
Plan:
# Acute hypoxic respiratory failure
- resolved
- required bipap then NC now on RA and sating well
- duonebs prn
- cont PO Decadron
# Acute on chronic HFrEF exacerbation-resolved
# Aflutter with h/p parox a fib -> sinus tachy
- per , EF of 25%
- repeat echo 12/28-Normal LV size and severely reduced function. Severe Global hypokinesis. Ejection fraction is 10-15% by visual assessment.
-Thickened and calcified aortic valve with restricted leaflet motion. Peak and mean gradients across the aortic valve are 18/8 mmHg respectively. Moderate aortic stenosis. Mild to moderate aortic valve regurgitation.
Aortic valve area by continuity equation 0.8 to 0.9 cm², pressure half-time 413 ms.
-Mild to moderate mitral valve regurgitation.
- furosemide 20mg IV once given cont home lasix dose
- monitor I/Os
- cont metoprolol tartrate BID
- cardiology input appreciated
- has watchman no AC
- restart valsartan as OP
- T/C GDMT
# Leukocytosis- from steroids-resolving
# Covid pneumonia
- rapid improvement
- no remdesivir or paxlovid needed at this time
- on RA - DC Decadron on DC
# Non-ischemic myocardial injury
- trend troponins peaked 1.26
- repeat Echo - EF 10-15%
- unclear benefit of SGLTi at this age and comorbidities d/w cards
# Elevated creatinine
- Cr 1.3, unknown baseline
- trending down
- trend BMP as OP
# HTN - restart valsartan and DC amlodipine
# Dementia - unclear type, likely Alzheimer's
Code status: DNR
DVTppx: heparin subq
Dispo DC to [facility] today
Time spent coordinating care, DC planning, review of DC plan of care with resident, transition of care, review of records, med rec/scripts sent electronically, consults, notes, d/w consultants, nursing, cards, and CM� 32 mins >50% of this time was
devoted to counseling and coordination of care
Original Note:
Today's Communication/Plan
-
- Awaiting discharge
- Continue dexamethasone 6mg daily until discharge (or 10 days max, whichever sooner; day 4, started 12/26); can consider stopping tmrw given lack of O2 requirement
- Restart lasix 40mg/day
- Continue metoprolol tartrate 25mg BID
- Restart valsartan at lower dose when renal function and blood pressure permit
- To discuss starting SGLT2i & MRA to complete GDMT for HFrEF
- Restart aspirin
- Restart repatha
Assessment / Plan
Assessment / Plan
Adolph Gilmore is an 84yo M with a pmh notable for afib (s/p watchman), HFrEF (25%) & HTN who p/w dyspnea & tachypnea, found to be COVID positive and septic with suspected CHrEF exacerbation (new echo LVEF 10-15%) and acute hypoxic respiratory
failure, both now resolved.
#Acute hypoxic respiratory failure, resolved
#Covid pneumonia
Pt no longer requiring O2 and without SOB/cough. AVSS. RR 18, pulse 80, O2 sat 94% on RA (one anomalous 90% reading, likely artifact). S/p 1 dose remdesivir (12/27), d/c due to clinical improvement without. Has not required duonebs.
- Continue dexamethasone 6mg daily until discharge (or 10 days max, whichever sooner; day 4, started 12/26); can consider stopping tmrw given lack of O2 requirement
- Duonebs prn
#Leukocytosis, improving
WBC increased to 19.3 yesterday, potentially 2/2 to steroid course given otherwise well clinical picture. Downtrending today to 15.6 - moving in right direction. Anticipate further resolution with cessation of steroids at discharge.
- Continue to monitor, ensure no further increase
#Acute on chronic HFrEF exacerbation, resolved
Likely triggered by COVID pneumonia. Echo 12/28: LVEF 10-15% (per , ~25% previously); moderate w regurge, moderate mitral regurg, moderate tricuspid regurg. Per cards: 'No evidence of heart failure at present despite markedly reduced LV
function.' Patient not on full GDMT at home (only metop & valsartan).
- Restart lasix 40mg/day, per cards
- Continue metoprolol tartrate 25mg BID
- Per cards, restart valsartan at lower dose when renal function and blood pressure permit
- To discuss starting SGLT2i & MRA to complete GDMT for HFrEF
#Paroxysmal atrial flutter, now resolved
#Type II myocardial infarction
Troponins peaked at 1.260 (12/27), downtrending since. EKG 12/27 with normal sinus rhythm, PVCs & LBBB. Elevated trop likely 2/2 demand ischemia in s/o HFrEF exacerbation 2/2 COVID PNA and atrial flutter with RVR. There has been no recurrence of a
flutter. Known afib, watchman in place.
- Per cards, restart aspirin, restart repatha, & continue metoprolol
#Elevated glucose
Fluctuating elevated 180 today, no DM at baseline. Likely 2/2 steroid course.
- Continue sliding scale insulin
#Elevated creatinine, resolved
Cr 1.5 on admission, unknown baseline. Trended down, now 1.3.
- Continue to trend BMP
#Chronic issues:
#HTN - per , chart review per external [facility] face sheet lists HCTZ, can hold HCTZ for now.
#Afib - watchman
#Dementia
#Global
Diet: Regular & thin liquid diet, per MEDICAL OFFICE MANAGER
Code status: DNR per record
DVTppx: heparin subq
Disposition: lives at [facility], planning for dispo there today; case mgmt left voicemail with them yesterday but awaiting conversation w scheduling manager
Anticipated Discharge: Within 24 hours
Subjective/Interval History
-
Date of Service: December 29, 2024
This morning pt somewhat confused, talking about gypsies. Was agitated overnight getting out of bed, per RN, but better than previous night / no ripping out IV. Pt denies any SOB, cough, f/c, n/v. Ready to discharge. Says he does not like [employer]. Does not recall if his came yesterday.
Objective Data
-
Labs:
Laboratory Results
12/29/24
05:50
WBC 15.6 H
Hgb 11.5 L
Hct 34.9 L
Plt Count 222
Sodium Pending
Potassium Pending
Chloride Pending
Carbon Dioxide Pending
BUN Pending
Creatinine Pending
Glucose Pending
Calcium Pending
Total Bilirubin Pending
AST Pending
ALT Pending
Alkaline Phosphatase Pending
Vital Signs:
Vital Signs
Temp Pulse Resp BP Pulse Ox
97.7 F 80 18 121/65 90
12/28/24 23:40 12/28/24 23:58 12/28/24 23:40 12/28/24 23:58 12/28/24 23:40
I&O
12/27/24 12/28/24 12/29/24
06:59 06:59 06:59
Intake Total 120 / 120 480 / 480 700 / 700
Output Total 500 / 500 600 / 600
Balance -380 / -380 -120 / -120 700 / 700
Review of Systems
-
Unable to obtain full review of systems at this time due to: Dementia
History Source: Patient
Constitutional: Reports No Symptoms
Respiratory: Reports No Symptoms
Physical Exam
-
General: Well Developed and Well Nourished
HEENT: Normocephalic, Atraumatic and Anicteric
Respiratory: Clear to Auscultation
Cardiac: Regular Rhythm
GI: Soft, Nontender and Nondistended
Musculoskeletal: No Edema (no DRU bilaterally)
Neuro: Awake and Alert
Psych: Confused and Anxious
Data Reviewed
-
Total Time Spent with Patient (in minutes): 15
Critical Care Time (in minutes): 35
Labs: Labs Reviewed by me
[2024-12-29 06:51] LABS: ALT (SGPT) 17 U/L (0-50); AST (SGOT) 24 U/L (17-59); Albumin 3.7 g/dl (3.5-5.0); Alkaline Phosphatase 68 U/L (38-126); Blood Urea Nitrogen 54 mg/dl (9-20); Calcium 9.4 mg/dl (8.4-10.2); Carbon Dioxide 23 mmol/L (22-30); Chloride 109 mmol/L (98-107); Estimated Creatinine Clearance 45 ml/min; Glucose 122 mg/dl (70-99); Potassium 4.5 mmol/L (3.5-5.1); Sodium 140 mmol/L (135-145); Total Protein 7.0 g/dl (6.3-8.2); eGFR 54.17
[2024-12-29 07:09] VITALS: BP 128/71
--- NOTE | 2024-12-29 07:49 | PN.CDI ---
CDI
- -
CDI:
Physician Documentation Request
Admit Date: 12/26/24 18:00
Dear Doctor,
Please review the following and provide your response in the progress notes.
Clinical Indicators:
- Patient admit for sepsis with covid pna, acute heart failure, and acute respiratory failure
- 12/28 PN indicates both:
- 'Non-ischemic myocardial injury'
- 'demand ischemia i/s/o HFrEF exacerbation, tachycardia, and covid infection'
- 12/28 Cardiology 'Regarding troponin, likely nonischemic myocardial injury related to atrial flutter with rapid ventricular response'
Laboratory Tests
12/26/24 12/27/24 12/28/24
20:22 02:46 06:47
Troponin I 1.100 H* D 1.260 H* 0.694 H*
Please clarify the following regarding the documented elevated troponins:
Non-ischemic myocardial injury
Type II VA due to demand ischemia
Other (please specify)
Use of terms such as suspected, likely, concern for, or probable (associated with a specific diagnosis that is being evaluated, monitored, or treated as if it exists) are acceptable and can be coded in the inpatient setting, when documented at the
time of discharge.
Thank you,
Regina Mathews RN
CDI Specialist
Please use your independent medical judgment in providing your response.
[2024-12-29 08:12] LABS: Glucose - Point of Care 126 mg/dl (70-99)
[2024-12-29] MEDS: LASIX 40 MG PO (09:10)
[2024-12-29] MEDS: DECADRON 6 MG PO (09:10)
[2024-12-29] MEDS: NOVOLOG FLEXPEN-LOW RESISTANCE SC ×2 (09:11→12:06)
[2024-12-29] MEDS: LOPRESSOR 25 MG PO (09:12)
[2024-12-29] MEDS: HEPARIN 5000 UNITS SC (09:12)
[2024-12-29] MEDS: DESENEX/MITRAZOL/ZEASORB 1 APPLIC TOPICAL (09:13)
--- NOTE | 2024-12-29 09:27 | CM ---
Addendum entered by Rashida Salazar RN 12/29/24 15:15:
CM spoke with Cassius LAY of [facility]. Able to accept patient back tonight. Provided 2N nurses station information for their nurse to call here.
Plan: Discharge to [facility].
Fax report to: [phone]
Medical necessity and transport forms on chart.
Addendum entered by Rashida Salazar RN 12/29/24 12:33:
CM called [facility] and was put on hold for 10 minutes. CM will attempt again later to reach someone. CM spoke with the patient's spouse regarding potential discharge today back to [facility]. She is in agreement. IMM reviewed with her.
Original Note:
Reviewed the chart notes. Left voice message for [facility]'s DON requesting call and fax phone numbers. Left voice message for patient's spouse regarding planned discharge back to [facility] and IMM. CM continues to be available to
patient/family and is monitoring medical plan for needs at discharge.
Plan: Discharge back to [facility] once CM is able to confirm they are able to accept back.
--- NOTE | 2024-12-29 10:37 | W.PN.CARDCBS ---
Impression / Plan
-
PCP: Lucas Yost
No primary field services analyst
Impression
Acute hypoxic respiratory failure
Sepsis secondary pneumonia
COVID
Elevated troponin
Acute on chronic HFrEF
A-fib with RVR
QT prolongation
LBBB
CAD-exact history unknown
Watchman
Echo 12/28/2024: Final report pending, but preliminarily EF 15 to 20%
Plan:
-84-year-old male with heart failure reduced EF, CVA, A-fib, watchman, CVA, CAD, presents with tachycardia and shortness of breath, found to have COVID pneumonia, acute heart failure, sepsis secondary to pneumonia, elevated troponin.
-Echo report pending, but EF 15 to 20% on 12/28/2024. EF reportedly reduced at 20 to 25% in the past. Patient following with an outside field services analyst and no previous testing results at [facility]
-Weight is down 1 pound overnight following a single dose of Lasix 20 mg IV on 12/27/2024. Patient was taking Lasix 40 mg PO daily prior to admission. Lasix 40 mg PO daily ordered by me to start 12/29/2024
-Outpatient dose of Toprol-XL 12.5 mg daily was changed to Lopressor 25 mg twice daily due to difficulty swallowing and the need to crush pills
-Outpatient dose of valsartan 80 mg daily is on hold due to possible CLARENCE
-Patient with known A-fib, but was admitted in so presumably this is paroxysmal. Patient is not chronically on OAC due to previous Watchman procedure
-Patient has history of CVA and is on aspirin
-Troponin peaked at 1.26 and will be managed as a nonischemic myocardial injury troponin elevation in the setting of hypoxia
Progress Note - Dial Painter
Subjective
Date of Service: December 29, 2024
Objective
Labs:
12/29/24 05:50
12/29/24 05:50
Labs
Hgb 11.5 g/dL (13.0-18.0) L 12/29/24 05:50
Hct 34.9 % (39.0-52.0) L 12/29/24 05:50
Plt Count 222 10^3/uL (130-400) 12/29/24 05:50
PT Cancelled 12/27/24 09:06
INR Cancelled 12/27/24 09:06
APTT 33.8 Sec (23.4-35.0) 12/27/24 09:05
Sodium 140 mmol/L (135-145) 12/29/24 05:50
Potassium 4.5 mmol/L (3.5-5.1) 12/29/24 05:50
BUN 54 mg/dl (9-20) H 12/29/24 05:50
Creatinine 1.3 mg/dL (0.7-1.3) 12/29/24 05:50
Glucose 122 mg/dl (70-99) H 12/29/24 05:50
Troponins
12/26/24 12/26/24 12/27/24
15:04 20:22 00:05
Troponin I 0.066 H* 1.100 H* D Cancelled
12/27/24 12/27/24 12/28/24
02:46 09:01 06:47
Troponin I 1.260 H* 0.993 H* 0.694 H*
Vital Signs and I&O:
Vital Signs
Temp Pulse Resp BP Pulse Ox
97.4 F 81 18 128/71 94
12/29/24 07:09 12/29/24 09:12 12/29/24 07:09 12/29/24 09:12 12/29/24 07:09
Vital Signs
Temp Pulse Resp BP Pulse Ox
97.4 F 81 18 128/71 94
12/29/24 07:09 12/29/24 09:12 12/29/24 07:09 12/29/24 09:12 12/29/24 07:09
Intake & Output
12/27/24 12/28/24 12/29/24 12/30/24
06:59 06:59 06:59 06:59
Intake Total 120 / 120 480 / 480 700 / 700
Output Total 500 / 500 600 / 600
Balance -380 / -380 -120 / -120 700 / 700
--- NOTE | 2024-12-29 10:52 | W.PN.CARDCBS ---
Addendum entered and electronically signed by Margot Reynolds DO 12/29/24 18:03:
I saw and examined the patient.
The Postie's note was reviewed and I agree with the note.
Comment: Patient was seen and examined. Chart/studies reviewed. Discussed case with nursing staff. Patient is poor historian, with underlying dementia, sitting out of bed to chair eating offering no complaints.
General: Awake, alert and oriented to person. No acute distress, room air
Heart: Regular, positive S1/S2, 2/6 SM
Lungs: CTA b/l, negative wheezes/rales/rhonchi
Abd: Positive BS
Ext: no edema
Plan:
84-year-old male with heart failure reduced EF, CVA, A-fib, watchman, CVA, CAD, presents with tachycardia and shortness of breath, found to have COVID pneumonia, acute heart failure, sepsis secondary to pneumonia, elevated troponin.
-EF 10 to 15% by echo 12/28/2024. Patient's reports EF previously as low as 20% with primary medical receptionist assistant through the [facility] system. Patient's also indicated that previous CM may have been due to atrial arrhythmia and the
patient was resistant to more aggressive rhythm control including declining AAD, ablation and PPM with his primary medical receptionist assistant.
-Given underlying dementia with behavioral issues and family preference conservative therapy. Will not pursue ischemic evaluation or more advanced heart failure therapies including ICD. They can have these discussions further as an outpatient with
their usual medical receptionist assistant.
-Outpatient dose of Toprol-XL was briefly changed to Lopressor this admission, but resumed by me 12/29/2024. Patient should continue on Toprol-XL 12.5 mg daily for GDMT
-Outpatient dose of valsartan 80 mg daily was held due to CLARENCE, but creatinine improved to 1.3 on my review of labs 12/29/2024 and should be resumed upon discharge to optimize GDMT.
-Weight is down 3 pounds this admission following Lasix 20 mg IV x 1 on 12/27/2024 and then resumption of his usual dose Lasix 40 mg PO daily starting 12/29/2024
-ECGs x 3 from this admission were reviewed by me 12/29/2024 and patient has been in SR. Patient with known paroxysmal A-fib. As noted above patient previously declined AAD, ablation and PPM therapy through his primary medical receptionist assistant.
-Patient is not chronically on OAC and has a previous watchman in place
-Patient has history of CVA and is on aspirin
-Troponin peaked at 1.26 and will be managed as a nonischemic myocardial injury troponin elevation in the setting of hypoxia
-Patient is scheduled to return to his [facility] psych unit on 12/29/2024 and should follow-up with his primary medical receptionist assistant as an outpatient
-Will sign off, recall if needed
Original Note:
Today's Communication / Plan
-
Scheduled to transfer back to [facility] today
Lopressor changed back to Toprol XL
Resume valsartan as well
Cont Lasix 40 mg PO daily
f/u with primary medical receptionist assistant
51 min face to face and non-face to face in caring for this patient today
Impression / Plan
-
PCP: Lucas Yost
Card: Dr. Scooby Marcos
Impression
Acute hypoxic respiratory failure
Sepsis secondary pneumonia
COVID
Elevated troponin
Acute on chronic HFrEF
CM EF 10 to 15% by echo 12/28/2024
Paroxysmal A-fib
s/p Watchman device
LBBB
CAD, details unknown
Hyperlipidemia
Echo 12/28/2024: EF 10 to 15%, normal RV size with mildly decreased function, moderate AAS with peak/mean 18/8 mmHg, mild to moderate aortic regurgitation, mild to moderate MR, moderate TR with PAP 55 mmHg
Plan:
-84-year-old male with heart failure reduced EF, CVA, A-fib, watchman, CVA, CAD, presents with tachycardia and shortness of breath, found to have COVID pneumonia, acute heart failure, sepsis secondary to pneumonia, elevated troponin.
-EF 10 to 15% by echo 12/28/2024. I called and talked with the patient's reports EF previously as low as 20% with primary medical receptionist assistant through the [facility]. Patient is not a candidate for ischemic evaluation given underlying
dementia with agitation and patient is living in a [facility] psych unit. Patient's also indicated that previous CM may have been due to atrial arrhythmia and the patient was resistant to more aggressive rhythm control including declining AAD,
ablation and PPM with his primary medical receptionist assistant.
-Outpatient dose of Toprol-XL was briefly changed to Lopressor this admission, but resumed by me 12/29/2024. Patient should continue on Toprol-XL 12.5 mg daily for GDMT
-Outpatient dose of valsartan 80 mg daily was held due to CLARENCE, but creatinine improved to 1.3 on my review of labs 12/29/2024 and should be resumed upon discharge to optimize GDMT.
-Weight is down 3 pounds this admission following Lasix 20 mg IV x 1 on 12/27/2024 and then resumption of his usual dose Lasix 40 mg PO daily starting 12/29/2024
-ECGs x 3 from this admission were reviewed by me 12/29/2024 and patient has been in SR. Patient with known paroxysmal A-fib. As noted above patient previously declined AAD, ablation and PPM therapy through his primary medical receptionist assistant.
-Patient is not chronically on OAC and has a previous watchman in place
-Patient has history of CVA and is on aspirin
-Troponin peaked at 1.26 and will be managed as a nonischemic myocardial injury troponin elevation in the setting of hypoxia
-Patient is scheduled to return to his [facility] psych unit on 12/29/2024 and should follow-up with his primary medical receptionist assistant as an outpatient
-I talked with patient's for 13 minutes and 12 seconds on 12/29/2024
Progress Note - Substation Design Draftsperson
Subjective
Date of Service: December 29, 2024
No complaints, doesn't know what his plans are for today
Objective
Labs:
12/29/24 05:50
12/29/24 05:50
Labs
Hgb 11.5 g/dL (13.0-18.0) L 12/29/24 05:50
Hct 34.9 % (39.0-52.0) L 12/29/24 05:50
Plt Count 222 10^3/uL (130-400) 12/29/24 05:50
PT Cancelled 12/27/24 09:06
INR Cancelled 12/27/24 09:06
APTT 33.8 Sec (23.4-35.0) 12/27/24 09:05
Sodium 140 mmol/L (135-145) 12/29/24 05:50
Potassium 4.5 mmol/L (3.5-5.1) 12/29/24 05:50
BUN 54 mg/dl (9-20) H 12/29/24 05:50
Creatinine 1.3 mg/dL (0.7-1.3) 12/29/24 05:50
Glucose 122 mg/dl (70-99) H 12/29/24 05:50
Troponins
12/26/24 12/26/24 12/27/24
15:04 20:22 00:05
Troponin I 0.066 H* 1.100 H* D Cancelled
12/27/24 12/27/24 12/28/24
02:46 09:01 06:47
Troponin I 1.260 H* 0.993 H* 0.694 H*
Vital Signs and I&O:
Vital Signs
Temp Pulse Resp BP Pulse Ox
97.4 F 81 18 128/71 94
12/29/24 07:09 12/29/24 09:12 12/29/24 07:09 12/29/24 09:12 12/29/24 07:09
Vital Signs
Temp Pulse Resp BP Pulse Ox
97.4 F 81 18 128/71 94
12/29/24 07:09 12/29/24 09:12 12/29/24 07:09 12/29/24 09:12 12/29/24 07:09
Intake & Output
12/27/24 12/28/24 12/29/24 12/30/24
06:59 06:59 06:59 06:59
Intake Total 120 / 120 480 / 480 700 / 700
Output Total 500 / 500 600 / 600
Balance -380 / -380 -120 / -120 700 / 700
Physical Exam
Physical Exam
GEN: NAD
LUNGS: RA
CV: SR on tele
[2024-12-29 11:48] VITALS: BMI 24.6
[2024-12-29 12:06] LABS: Glucose - Point of Care 139 mg/dl (70-99)
[2024-12-29 15:00] VITALS: BP 126/73
--- NOTE | 2024-12-29 15:44 | W.DCSUMMARY ---
Addendum entered and electronically signed by Jerry Bowden MD 12/29/24 23:12:
Read, reviewed, and agree. See same day progress note for additional details.
Josh Bowden MD
Original Note:
Documented by User: Jaclyn James MD, Resident 12/29/24 16:41
Discharge Summary
Discharge Data
Date of Admission: 12/26/24
Date of Discharge: 12/29/24
Total time spent discharging patient (in min): 40
-
Pending Results: No
Hospital Course
Discharging Physician : Jaclyn Benites
Disposition : To [facility], care facility
Primary care physician : Lucas Yost ([facility])
Principal Discharge diagnoses : Acute hypoxic respiratory failure secondary to COVID-pneumonia; acute on chronic HFrEF exacerbation
Chronic Discharge diagnoses : Atrial fibrillation; hypertension; vascular dementia with psychotic features
Hospital Course :
1. Acute hypoxic respiratory failure secondary to COVID-pneumonia
Patient presented from [facility] with chief complaint of dyspnea. Had tachycardia to the 160s and was short of breath. Was given Versed in the field and cardioverted twice with 100 and then 200 J. Patient arrived at [facility] with fever,
shortness of breath, and tachycardia to 114. COVID-positive. Patient started on BiPAP overnight following admission. Downgraded to 1 L O2 nasal cannula the next morning, which he required for less than a day before transitioning to room air with
appropriate O2 sat. Per RECOVERY trial, patient was started on dexamethasone 6 mg daily until discharge. Received 1 dose remdesivir, deemed unnecessary given clinical picture. Did not require Duonebs. Patient continued to improve clinically over
admission with without dyspnea, cough, fever. O2 sat 94% on room air at time of discharge.
2. Acute on chronic HFrEF exacerbation
Patient with proBNP elevated to 11,700 on admission. Per last known EF in 20 to 25% range. CXR on admission read as mild edema. Patient without lower extremity edema or orthopnea. Given 1 dose 20 mg Lasix. Echo on 824 demonstrated reduced
left ejection fraction at 10 to 15%, as well as aortic stenosis, aortic valve regurgitation, mitral valve regurgitation, tricuspid regurgitation. Patient continued on metoprolol succinate while inpatient. Valsartan had been held given CLARENCE. Plan
to continue furosemide 40 mg daily and metoprolol succinate extended action 12.5 mg p.o. daily on discharge. Consider completing GDMT with addition of MRA and SGLT2 inhibitor - per outpatient cards. Recommend follow-up with outpatient cardiology
for management of HFrEF.
3. Paroxysmal atrial flutter, nonischemic myocardial injury
EKGs following admission demonstrated widened QRS (464ms and 445ms) and tachycardia, interpreted by cards as paroxysmal atrial flutter with chronic left bundle branch block, with subsequent spontaneous conversion to sinus rhythm. Troponin peaked at
1.26, thought to be demand ischemia. No ischemic changes on 2 EKGs. Troponin trended down, last measured at 0.694 before discharge. Patient with known A-fib, likely with watchman.
4. Other
- Elevated creatinine 1.5 on admission, unknown baseline. Trended down, 1.3 at discharge.
- Leukocytosis: Patient with elevated WBC 12.2 on admission which then trended down and spiked up to 19.3 on 82. Trending down to 15.6 at discharge. Likely secondary to steroid course being given for COVID pneumonia.
- Patient with nighttime agitation, confusion. Likely secondary to underlying dementia, unfamiliar setting, steroids, infection.
Important imaging findings :
-CXR on 12/26 demonstrated mild interstitial opacification which may represent mild edema.
- Echocardiogram on 12/28 demonstrated the following:
1. Normal LV size and severely reduced function. Severe Global hypokinesis. Ejection fraction is 10-15% by visual assesment.
2. Right ventricular cavity size is within normal limits.
3. Right ventricular systolic function is mildly decreased.
4. Thickened and calcified aortic valve with restricted leaflet motion. Peak and mean gradients across the aortic valve are 18/8 mmHg respectively. Moderate aortic stenosis. Mild to moderate aortic valve regurgitation. Aortic valve area by
continuity equation 0.8 to 0.9 cm², pressure half-time 413 ms.
5. Mild to moderate mitral valve regurgitation.
6. Moderate tricuspid regurgitation. Estimated pulmonary artery pressure of 55 mmHg assuming a right atrial pressure of 8 mmHg.
7. Could consider dobutamine stress echo to better assess aortic valve severity.
8. There are no prior studies available for comparison.
Procedure findings : N/A
Discharge Plan
-
Patient Disposition: Psych Facility
Discharge Diagnosis/Procedures: Acute hypoxic respiratory failure due to Covid pneumonia. Acute on chronic HFrEF exacerbation.
Condition: Good
Diet: No restrictions
Activity: No restrictions and As tolerated
Driving Restrictions: As prior to admission
Bathing Restrictions: None
Referrals:
Joahn Hewitt MD [Active, Cardiology] - in one to two weeks
Referral Note: Follow up for heart failure management
Lucas Yost DO [Family Provider, Internal Medicine] - in one week
Additional Discharge Medication Instructions: Continue home medications. Follow up with primary care physician and space sciences director for management of your heart failure.
Prescriptions:
Continued
quetiapine 25 mg Tablet
25 mg PO BID
Rx Instructions:
every morning and before bed
furosemide 40 mg Tablet
40 mg PO DAILY
nicotine 14 mg/24 hr patch 24 hour
1 patch topical DAILY
Patient Comments:
Per halfway, patient has been refusing patch
Rx Instructions:
apply to deltoid, switch arms daily
valsartan 80 mg Tablet
80 mg PO DAILY
therapeutic multivitamin Tablet
1 tab PO DAILY
aspirin 81 mg Tablet,Delayed Release (Dr/Ec)
81 mg PO DAILY
acetaminophen 500 mg tablet
500 mg PO Q6HPRN PRN (Reason: mild pain/fever)
tamsulosin 0.4 mg Capsule
0.4 mg PO HS
amlodipine 10 mg Tablet
10 mg PO DAILY
metoprolol succinate 25 mg Tablet Extended Release 24 Hr
12.5 mg PO DAILY
cyclobenzaprine 5 mg Tablet
5 mg PO TIDPRN PRN (Reason: spasms/sciatica)
cholecalciferol (vitamin D3) 50 mcg (2,000 unit) Tablet
50 mcg PO DAILY
Repatha SureClick 140 mg/mL Pen Injector
140 mg SC Q2W
Discharge Orders:
Discharge Patient (As Directed); Ordered 12/29/24
Ordered By: Jaclyn James
Discharge Date and Time
Discharge Date/Time: 12/29/24 20:18
Print Language: LIBYAN

Documented by User: Jerry Bowden MD 12/29/24 23:06
Discharge Summary
Discharge Data
Date of Admission: 12/26/24
Date of Discharge: 12/29/24
Discharge Plan
-
Patient Disposition: Psych Facility
Discharge Diagnosis/Procedures: Acute hypoxic respiratory failure due to Covid pneumonia. Acute on chronic HFrEF exacerbation.
Condition: Good
Diet: No restrictions
Activity: No restrictions and As tolerated
Driving Restrictions: As prior to admission
Bathing Restrictions: None
Referrals:
Johan Hewitt MD [Active, Cardiology] - in one to two weeks
Referral Note: Follow up for heart failure management
Lucas Yost DO [Family Provider, Internal Medicine] - in one week
Additional Discharge Medication Instructions: Continue home medications. Follow up with primary care physician and space sciences director for management of your heart failure.
Prescriptions:
Continued
quetiapine 25 mg Tablet
25 mg PO BID
Rx Instructions:
every morning and before bed
furosemide 40 mg Tablet
40 mg PO DAILY
nicotine 14 mg/24 hr patch 24 hour
1 patch topical DAILY
Patient Comments:
Per halfway, patient has been refusing patch
Rx Instructions:
apply to deltoid, switch arms daily
valsartan 80 mg Tablet
80 mg PO DAILY
therapeutic multivitamin Tablet
1 tab PO DAILY
aspirin 81 mg Tablet,Delayed Release (Dr/Ec)
81 mg PO DAILY
acetaminophen 500 mg tablet
500 mg PO Q6HPRN PRN (Reason: mild pain/fever)
tamsulosin 0.4 mg Capsule
0.4 mg PO HS
amlodipine 10 mg Tablet
10 mg PO DAILY
metoprolol succinate 25 mg Tablet Extended Release 24 Hr
12.5 mg PO DAILY
cyclobenzaprine 5 mg Tablet
5 mg PO TIDPRN PRN (Reason: spasms/sciatica)
cholecalciferol (vitamin D3) 50 mcg (2,000 unit) Tablet
50 mcg PO DAILY
Repatha SureClick 140 mg/mL Pen Injector
140 mg SC Q2W
Discharge Orders:
Discharge Patient (As Directed); Ordered 12/29/24
Ordered By: Jaclyn James
Discharge Date and Time
Discharge Date/Time: 12/29/24 20:18
Print Language: LIBYAN
[2024-12-29 16:22] LABS: Glucose - Point of Care 168 mg/dl (70-99)
[2024-12-29] MEDS: NOVOLOG FLEXPEN-LOW RESISTANCE 1 UNITS SC (16:22)
[2024-12-29 18:54] VITALS: BP 120/69
--- NOTE | 2024-12-29 19:40 | PTCARENOTE ---
Patient discharged back to [facility], transported by [facility]. This RN removed patient's IV and gathered belongings in room. No phone number to call report per CM charting.
== END 2024-12-29 20:18 | disposition home or self-care (01) | DRG 871 ==
LOC: 2 NORTH 18:00
PROVIDERS: ADMITTING PHYSICIAN Internal Medicine; ATTENDING PHYSICIAN Family Medicine; CONSULT PHYSICIAN Internal Medicine Cardiovascular Disease; EMERGENCY PHYSICIAN Emergency Medicine; FAMILY PHYSICIAN Internal Medicine Geriatric Medicine
PROC: 5A09357 Assistance with Respiratory Ventilation, Less than 24 Consecutive Hours, Continuous Positive Airway Pressure (ICD-10-PCS; 2024-12-26)
DX: A41.9 Sepsis, unspecified organism (principal); I50.23 Acute on chronic systolic (congestive) heart failure; J96.01 Acute respiratory failure with hypoxia; U07.1 COVID-19; J12.82 Pneumonia due to coronavirus disease 2019; I5A Non-ischemic myocardial injury (non-traumatic); J98.11 Atelectasis; I48.92 Unspecified atrial flutter; I25.10 Atherosclerotic heart disease of native coronary artery without angina pectoris; I44.7 Left bundle-branch block, unspecified; F02.80 Dementia in other diseases classified elsewhere, unspecified severity, without behavioral disturbance, psychotic disturbance, mood disturbance, and anxiety; I11.0 Hypertensive heart disease with heart failure; E78.00 Pure hypercholesterolemia, unspecified; Z66 Do not resuscitate; I48.0 Paroxysmal atrial fibrillation; I08.3 Combined rheumatic disorders of mitral, aortic and tricuspid valves; G30.9 Alzheimer's disease, unspecified; Z79.82 Long term (current) use of aspirin; Z87.891 Personal history of nicotine dependence; Z79.899 Other long term (current) drug therapy; Z86.73 Personal history of transient ischemic attack (TIA), and cerebral infarction without residual deficits
CPT/HCPCS: 71045; 80048; 80053; 81003; 81015; 82805; 82962; 83036; 83605; 83735; 83880; 84145; 84484; 85025; 85027; 85610; 85730; 87040; 87070; 87086; 87502; 87811; 92610; 93005; 93306; 94640; 96361; 96374; 96375; 97162; 99291; J0248